=== PATIENT | female | born 1980 | race Caucasian/White ===

== ENCOUNTER 2020-02-13 14:00 | Emergency (ER) | payer BC ==
--- NOTE | 2020-02-13 14:04 | ERPHSYRPT ---
- History of Present Illness Time Seen by Provider: 02/13/20 14:04 Source: patient Exam Limitations: no limitations Physician History: This is a 40-year-old female who has no known drug allergies and presents with approximately 3-week history of left facial boil. It is increased in size. Patient did try to squeeze it. There was no pus drainage from the site. Patient has no known history of MRSA. Patient has not had any fevers. 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 Timing/Duration: week(s) (3 weeks), worse Quality: painful (Mildly) Severity: mild Location: face Possible Causes: other (Possible folliculitis) Associated Symptoms: denies symptoms Allergies/Adverse Reactions: No Known Drug Allergies Allergy (Verified 02/13/20 14:24) Travel Risk - International Travel Have you traveled outside of the country in past 3 weeks: No - Coronavirus Screening Are you exhibiting any of the following symptoms?: No Close contact with a COVID-19 positive Pt in past 14-21 Days: No - Review of Systems Constitutional: No Symptoms Eyes: No Symptoms Ears, Nose, & Throat: No Symptoms Respiratory: No Symptoms Cardiac: No Symptoms Abdominal/Gastrointestinal: No Symptoms Genitourinary Symptoms: No Symptoms Musculoskeletal: No Symptoms Skin: Other (Localized raised skin lesion left face) Neurological: No Symptoms Psychological: No Symptoms Endocrine: No Symptoms Hematologic/Lymphatic: No Symptoms Immunological/Allergic: No Symptoms All Other Systems: Reviewed and Negative - Past Medical History Pertinent Past Medical History: Yes Neurological History: No Pertinent History ENT History: No Pertinent History Cardiac History: No Pertinent History Respiratory History: No Pertinent History Endocrine Medical History: No Pertinent History Musculoskeletal History: No Pertinent History GI Medical History: No Pertinent History History: No Pertinent History Psycho-Social History: No Pertinent History Female Reproductive Disorders: No Pertinent History - Past Surgical History Past Surgical History: No Neuro Surgical History: No Pertinent History Cardiac: No Pertinent History Respiratory: No Pertinent History Gastrointestinal: No Pertinent History Genitourinary: No Pertinent History Musculoskeletal: No Pertinent History Female Surgical History: No Pertinent History Significant Family History: polycystic ovarian disease; endometriosis; mother and sister - Nursing Vital Signs Nursing Vital Signs: Initial Vital Signs Temperature 98.4 F 02/13/20 14:09 Pulse Rate 100 H 02/13/20 14:09 Blood Pressure 142/75 02/13/20 14:09 O2 Sat by Pulse Oximetry 99 02/13/20 14:09 Pain Scale Pain Intensity 0 - Physical Exam General Appearance: no apparent distress, alert, anxiety Eye Exam: PERRL/EOMI, eyes nml inspection Ears, Nose, Throat Exam: normal ENT inspection, moist mucous membranes Neck Exam: normal inspection, non-tender, supple, full range of motion Respiratory Exam: normal breath sounds, lungs clear, airway intact, No chest tenderness, No respiratory distress Cardiovascular Exam: regular rate/rhythm, normal heart sounds, normal peripheral pulses Gastrointestinal/Abdomen Exam: soft, normal bowel sounds, No tenderness Pelvic Exam: not done Rectal Exam: not done Back Exam: normal inspection, normal range of motion, No CVA tenderness, No vertebral tenderness Extremity Exam: normal inspection, normal range of motion, pelvis stable Neurologic Exam: alert, oriented x 3, cooperative, 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 There is no evidence of pus. The area is indurated.) Lymphatic Exam: No adenopathy SpO2 Interpretation: normal O2 Delivery: Room Air - Course Nursing assessment & vital signs reviewed: Yes - Progress Progress: unchanged Counseled pt/family regarding: diagnosis, need for follow-up - Departure Departure Disposition: Home Clinical Impression: Boil, face Condition: Stable Critical Care Time: No Additional Instructions: Keep facial area cleaned with soap and water daily. Do not squeeze the site. Use [id number] boil ease product as instructed on the tube and package insert. Warm compress to left cheek 3 times a day. Return to the emergency department tomorrow for reevaluation. Take medication as prescribed. Forms: Work/School Release Form Prescriptions: Smz/Tmp Ds Tablet [Bactrim Ds Tablet] 1 udtab PO BID #14 tablet
[2020-02-13 14:24] VITALS: BP 142/75; PULSE 100; O2SAT 99
[2020-02-13] MEDS ORDERED: BACTRIM DS TABLET PO ONE (14:26)
[2020-02-13] MEDS: BACTRIM DS TABLET PO ONE (14:28)
== END 2020-02-13 14:42 | disposition home or self-care (01) ==
LOC: ED 14:00
DX: L02.02 Furuncle of face (principal)
CPT/HCPCS: 99283; A9270-GY